=== PATIENT | male | born 2000 | race Caucasian/White ===

== ENCOUNTER 2022-08-27 20:15 | Emergency (ER) | payer OTHER, SELFPAY ==
--- OUTSIDE RECORDS SUMMARY | 2022-08-27 20:17 | XMS REPORT | Continuity of Care Document ---
:2000 Author Organization [facility] t Address [address] [place] [place] [address] Care Team Providers Name Role Phone DEWAYNE ALEJANDRE Primary Care Physician Unavailable CLARIBEL WHITAKER Attending Clinician Unavailable TIFFANIE VANN Attending Clinician Unavailable Dewayne Portillo Attending Clinician Unavailable Juve lAejo Attending Clinician Juve WAITE Attending Clinician Unavailable Physician, No Primary or Family Admitting Clinician Unavaila Juve Gray Admitting Clinician Unavailable Payers Payer Name Policy Type Policy Number Effective Date Expiration Date S bandar [employer] O [id number] 2020 00:00:00 [employer] [facility] [id number] 2015 00:00:00 Problems This patient has no known problems. Allergies, Adverse Reactions, Alerts Allergy Allergy Status Severity Reaction(s) Onset Inactive Treating Comm ents Source Name Type Date Date Clinician [facility] [employer] Active Anaphylaxis 2017-10 Univ ers [facility]GREDI 0-11 ity of 00:00: [address] [facility] [employer] Active Rash 2017-10 Univers IN INGREDI 0-11 ity of 00:00: [address] Medications This patient has no known medications. Procedures This patient has no known procedures. Encounters Start End Encounter Admission Attending Care Care Encounter Source Date/Time Date/Time Type Type Clinicians Facility Department ID 2021-06-07 2021-06-07 Outpatient Judson LACIEBABITA [facility] [id number] Univers 16:30:00 16:30:00 [facility] 2021-05-13 2021-05-13 Outpatient Judson WHITAKER [facility] [id number] Univers 11:30:00 11:30:00 [facility] 2021-05-13 2021-05-13 Outpatient Judson MEDELLINBABITA [facility] [id number] Univers 09:00:00 09:00:00 [facility] 2021-05-04 2021-05-04 [facility] [id number] Univers 10:15:00 10:15:00 [facility] 2021-04-13 2021-04-13 Outpatient Judson WHITAKER [facility] [id number] Univers 10:15:00 10:15:00 [facility] 2021-03-26 2021-03-26 Outpatient Judson VANN [facility] [id number] Univers 13:30:00 13:30:00 TIFFANIE [facility] 2020-05-28 2020-05-28 Outpatient KENA Portillo RADI [id number] [facility] 11:00:00 11:00:00 Dewayne [facility] 2020-03-30 2020-03-30 Emergency Juve Waite [facility] [id number] 17:22:42 19:52:00 Basia Gilbert [id number] [place] [id number] [place] [id number] 2020-03-30 2020-03-30 Emergency X Juve WAITE [facility] ERT [id number] Univers 17:22:42 19:52:00 [facility] Results Test Description Test Time Test Comments Results Result [facility] e Comments - CT 2020-05-28 Name: ANDREW HILARIO ORBIT/SELLA/IAC WO 14:04:00 JOSE RAFAEL TAO: 2000 Age/S: 19 / M [id number] [facility] Unit #: [id number] Loc: [place] [address] Phys: Dewayne Portillo III, MD Acct: [id number] Dis Date: Status: REG CLI PHONE #: [phone] Exam Date: 05/28/2020 3342 FAX #: Reason: DYSFUNCTION OF RIGHT OCULACHIAN TUBE EXAMS: CPT: [id number] CT ORBIT/SELLA/[place] [id number] EXAM: CT temporal bones without contrast. HISTORY: Right eustachian tube dysfunction COMPARISON: None available.Technique: Axial images of the temporal bones were obtained without contrast. Images were reformatted to create coronal and sagittal reconstructions. FINDINGS: Right temporal bone: External auditory canal is patent. Mastoid air cells and middle ear cavity are clear. There is normal appearance of the tympanic membrane as well as the scutum and tympanic annulus. Tegmen tympani is intact. Middle ear ossicles are preserved and within normal limits. Malleoincudal joint is grossly within normal limits. Oval window is grossly within normal limits.The tympanic course of the facial nerve is unremarkable. Visualized intraorbital structures including the cochlea and semicircular canals are within normal limits. There is no evidence for dehiscence. The vestibular aqueduct in caliber of the internal auditory canal are otherwise within normal limits. Opacification of the right eustachian tube is noted at the osseous portion of the connection to the tympanic cavity. Left temporal bone: External auditory canal is patent. Mastoid air cells and middle ear cavity are clear. There is normal appearance of the tympanic membrane as well as the scutum and tympanic annulus. The tegmen tympani is intact. Middle ear ossicles are preserved and within normal limits. Malleoincudal joint is grossly within normal limits. Oval window is grossly within normal limits.The tympanic course of the facial nerve is unremarkable. Visualized intraorbital structures including the cochlea and semicircular canals are within normal limits. There is no evidence for dehiscence. The vestibular aqueduct in caliber of the internal auditory canal are otherwise within normal limits. The left eustachian tube is unremarkable. The mastoid air cells are clear. IMPRESSION: Opacification of the right eustachian tube at the osseous portion connected to the tympanic cavity. PAGE 1 Signed Report (CONTINUED) Name: ANDREW HILARIO : 2000 Age/S: 19 / M [address] [place] Unit #: [id number] Loc: [place] [address] Phys: Dewayne Portillo III, MD Acct: [id number] Dis Date: Status: REG CLI PHONE #: [phone] Exam Date: 05/28/2020 1130 FAX #: Reason: DYSFUNCTION OF RIGHT OCULACHIAN TUBE EXAMS: CPT: [id number] CT ORBIT/SELLA/[place] [id number] (Continued) at 1404 Reported and signed by: Juan Parrish M.D. CC: Dewayne Portillo III, MD Technologist:Lenora Campoverde, RT(R)(CT); Lee CTDI: DLP: Trnscb Date/Time: 05/28/2020 (2504) [email or web address] Orig Print D/T: S: 05/28/2020 (5882) PAGE 2 Signed Report
[2022-08-27] MEDS ORDERED: ONDANSETRON 4 MG/2 ML VIAL ONE (21:32)
[2022-08-27] MEDS ORDERED: NA CHLORIDE 0.9% 1,000 ML ONE ×2 (21:32→23:03)
[2022-08-27] MEDS ORDERED: FAMOTIDINE 20 MG/2 ML VIAL IV ONE (21:32)
[2022-08-27 21:46] LABS: Absolute Lymphocytes (CBC) 1.3 K/uL (0.7-4.9); Hematocrit 53.7 % (39.6-49.0); Lymphocytes % 5.3 % (15.3-44.8); MCV 87.5 fL (80-100); MPV 7.9 fL (7.6-11.3); RBC Red Blood Cell Count 6.13 M/uL (4.33-5.43)
[2022-08-27 22:03] LABS: Albumin 5.1 g/dL (3.4-5.0); Bilirubin Total 0.6 mg/dL (0.2-1.0); Potassium 3.5 mmol/L (3.5-5.1); Protein, Total 9.6 g/dL (6.4-8.2)
--- NOTE | 2022-08-27 22:25 | RAD REPORT ---
EXAM DESCRIPTION: US - Abdomen Exam Limited - 08/27/2022 10:10 pm CLINICAL HISTORY: ABD PAIN COMPARISON: No comparisons FINDINGS: The gallbladder demonstrates no gallstones. No pericholecystic fluid or gallbladder wall t hickening. The common bile duct is normal measuring 4 mm. The liver demonstrates no findings of intrahepatic biliary dilatation. IMPRESSION: Unremarkable examination. Negative for cholelithiasis or acute cholecystitis.
[2022-08-27 22:34] LABS: Blood Morphology Comment NOT SEEN (NOT SEEN); Platelet Estimate ADEQ
--- NOTE | 2022-08-27 22:46 | RAD REPORT ---
EXAM DESCRIPTION: CTAbdomen Pelvis W Contrast - 08/27/2022 10:35 pm CLINICAL HISTORY: abd pain COMPARISON: No comparisons TECHNIQUE: CT of the abdomen and pelvis was performed with IV contrast. All CT scans are performed using dose optimization technique as appropriate and may include automated exposure control or mA/KV adjustment according to patient size. FINDINGS: Lower chest: No acute abnormality. Liver: No acute abnormality or suspicious lesions. Biliary: No biliary ductal dilatation. Stomach: No significant focal abnormality. Duodenum: No significant focal abnormality. Pancreas: No significant abnormality. Spleen: No significant abnormality. Adrenal: No suspicious lesions. Kidney/ureter: No hydronephrosis. No renal calculi. Retroperitoneum: No retroperitoneal adenopathy. Vascular: No aneurysm. Bowel: Diffusely distended colon with fluid and multiple small air-fluid levels.. Normal appendix. Peritoneum: No ascites or free air. Bladder: Grossly unremarkable. Reproductive: No adnexal masses. Bones: No acute fracture. Other: n/a IMPRESSION: Distended colon with fluid and small air-fluid levels likely representing diarrheal dise ase. No bowel obstruction. Normal appendix. .
[2022-08-27] MEDS ORDERED: metroNIDAZOLE 500 MG TABLET ONE (23:03)
[2022-08-27] MEDS ORDERED: CIPROFLOXACIN HCL 500 MG TAB ONE (23:03)
--- NOTE | 2022-08-27 23:44 | EDPHYS ---
Physician Documentation [facility] Name: Thaddeus Carvalho Age: 21 yrs Sex: Male : 2000 Arrival Date: 08/27/2022 Time: 20:17 Bed 7 Private MD: ED Physician Juan Mendez HPI: 08/27 22:59 This 21 yrs old Male presents to ER via Ambulatory with complaints of Vomiting/Diarrhea.kb 22:59 The patient presents to the emergency department with nausea, vomiting, diarrhea, kb abdominal pain. Onset: The symptoms/episode began/occurred today. Possible causes: unknown. The symptoms are aggravated by nothing. The symptoms are alleviated by nothing. Associated signs and symptoms: Pertinent positives: abdominal pain, diarrhea, nausea, vomiting. Severity of symptoms: At their worst the symptoms were moderate in the emergency department the symptoms are unchanged. The patient has not experienced similar symptoms in the past. The patient has not recently seen a physician. Historical: - Allergies: 20:50 PENICILLINS; hb 20:50 Aspirin; hb - Immunization history:: Client reports having NOT received the Covid vaccine. - Social history:: Smoking status: Patient denies any tobacco usage or history of. ROS: 22:58 Constitutional: Negative for fever, chills, and weight loss. kb 22:58 Abdomen/GI: Positive for abdominal pain, nausea, vomiting, and diarrhea. 22:58 All other systems are negative. Exam: 22:58 Constitutional: This is a well developed, well nourished patient who is awake, alert, kb and in no acute distress. Head/Face: Normocephalic, atraumatic. ENT: Moist Mucous membranes Cardiovascular: Regular rate and rhythm with a normal S1 and S2. No gallops, murmurs, or rubs. No pulse deficits. Respiratory: Respirations even and unlabored. No increased work of breathing. Talking in full sentences Skin: Warm, dry with normal turgor. Normal color. MS/ Extremity: Pulses equal, no cyanosis. Neurovascular intact. Full, normal range of motion. Neuro: Awake and alert, GCS 15, oriented to person, place, time, and situation. Moves all extremities. Normal gait. Psych: Awake, alert, with orientation to person, place and time. Behavior, mood, and affect are within normal limits. 22:58 Abdomen/GI: Inspection: abdomen appears normal, Bowel sounds: normal, Palpation: soft, in all quadrants, mild abdominal tenderness, in all quadrants. Vital Signs: 20:49 BP 137 / 88; Pulse 124; Resp 18; Temp 97.2; Pulse Ox 100% on R/A; Weight 90.72 kg; hb Height 5 ft. 8 in. (172.72 cm); Pain 5/10; 21:11 BP 140 / 106; Pulse 110; Resp 17 S; Temp 98(O); Pulse Ox 100% on R/A; Pain 6/10; aa9 21:55 BP 132 / 96; Pulse 96; Resp 17 S; Pulse Ox 100% on R/A; as6 20:49 Body Mass Index 30.41 (90.72 kg, 172.72 cm) hb MDM: 21:00 Patient medically screened. kb 22:58 Data reviewed: vital signs, nurses notes. Data interpreted: Pulse oximetry: on room air kb is 100 %. Interpretation: normal. Counseling: I had a detailed discussion with the patient and/or guardian regarding: the historical points, exam findings, and any diagnostic results supporting the discharge/admit diagnosis, lab results, radiology results, the need for outpatient follow up, a family practitioner, to return to the emergency department if symptoms worsen or persist or if there are any questions or concerns that arise at home. 08/27 21:17 Order name: CBC with Diff; Complete Time: 22:39 kb 08/27 21:17 Order name: CMP; Complete Time: 22:19 kb 08/27 21:17 Order name: Lipase; Complete Time: 22:19 kb 08/27 21:17 Order name: US Abdomen Limited; Complete Time: 22:39 kb 08/27 21:51 Order name: Manual Differential; Complete Time: 22:39 EDMS 08/27 22:19 Order name: CT Abd/Pelvis - IV Contrast Only; Complete Time: 22:47 kb 08/27 21:17 Order name: IV Saline Lock; Complete Time: 21:42 kb 08/27 21:17 Order name: Labs collected and sent; Complete Time: 21:42 kb Administered Medications: 21:54 Drug: NS 0.9% 1000 ml Route: IV; Rate: 1 bolus; Site: right forearm; as6 08/28 00:00 Follow up: Response: No adverse reaction; IV Status: Completed infusion; IV Intake: as6 1000ml 08/27 21:54 Drug: Pepcid (famotidine) 20 mg Route: IVP; Site: right forearm; as6 23:01 Follow up: Response: No adverse reaction aa9 21:54 Drug: Zofran (Ondansetron) 4 mg Route: IVP; Site: right forearm; as6 23:01 Follow up: Response: No adverse reaction aa9 23:08 Drug: Cipro (ciprofloxacin) 500 mg Route: PO; aa9 23:59 Follow up: Response: No adverse reaction as6 23:08 Drug: Flagyl (metroNIDAZOLE) 500 mg Route: PO; aa9 08/28 00:00 Follow up: Response: No adverse reaction as08/27 23:08 Drug: NS 0.9% 1000 ml Route: IV; Rate: 1000 ml; Site: right wrist; aa9 08/28 00:00 Follow up: Response: No adverse reaction; IV Status: Completed infusion; IV Intake: as6 1000ml Disposition: 06:03 Co-signature as Attending Physician, Juan Mendez MD I agree with the assessment and kdr plan of care. Disposition Summary: 08/27/22 23:43 Discharge Ordered Location: Home kb Condition: Stable kb Diagnosis - Nausea with vomiting, unspecified kb - Diarrhea, unspecified kb - Elevated white blood cell count kb Followup: kb - With: Private Physician - When: 2 - 3 days - Reason: Recheck today's complaints, Continuance of care, Re-evaluation by your physician Followup: kb - With: Emergency Department - When: As needed - Reason: Worsening of condition Discharge Instructions: - Discharge Summary Sheet kb - Food Choices to Help Relieve Diarrhea, Adult kb - Viral Gastroenteritis, Adult, [id number] kb - Colitis kb Forms: - Medication Reconciliation Form kb - Thank You Letter kb - Antibiotic Education kb - Prescription Opioid Use kb Prescriptions: - Flagyl 500 mg Oral Tablet - take 1 tablet by ORAL route every 8 hours for 10 days; 30 tablet; Refills: 0, kb Product Selection Permitted - Zofran 4 mg Oral Tablet - take 1 tablet by ORAL route every 6 hours As needed; 20 tablet; Refills: 0, kb Product Selection Permitted - Cipro 500 mg Oral Tablet - take 1 tablet by ORAL route every 12 hours for 10 days; 20 tablet; Refills: 0, kb Product Selection Permitted Signatures: Dispatcher [employer] Liane Mcwilliams, LAUNDRY OPERATOR FINISHING-C LAUNDRY OPERATOR FINISHING-Juan Sevilla MD MD kdr Baxter, Heather RN RN Eric Slade RN RN as6 Barbie Castañeda RN RN aa9 Corrections: (The following items were deleted from the chart) 08/27 20:51 20:50 Allergies: No Known Allergies; hb
--- NOTE | 2022-08-27 23:44 | ER ---
Nurse's Notes [facility] Name: Thaddeus Carvalho Age: 21 yrs Sex: Male : 2000 Arrival Date: 08/27/2022 Time: 20:17 Bed 7 Private MD: Diagnosis: Nausea with vomiting, unspecified;Diarrhea, unspecified;Elevated white blood cell count Presentation: 08/27 20:49 Chief complaint: N/V/D and RUQ pain since this morning, not tolerating fluids. Actively hb vomiting in triage. Coronavirus screen: Client presents with at least one sign or symptom that may indicate coronavirus-19. Standard/surgical mask placed on the client. Provider contacted for isolation considerations. Ebola Screen: No symptoms or risks identified at this time. Risk Assessment: Do you want to hurt yourself or someone else? Patient reports no desire to harm self or others. Onset of symptoms was August 27, 2022. 20:49 Method Of Arrival: Ambulatory hb 20:49 Acuity: EMELIA 3 hb 21:42 Initial Sepsis Screen: Does the patient meet any 2 criteria? No. Patient's initial as6 sepsis screen is negative. Does the patient have a suspected source of infection? No. Patient's initial sepsis screen is negative. Historical: - Allergies: 20:50 PENICILLINS; hb 20:50 Aspirin; hb - Immunization history:: Client reports having NOT received the Covid vaccine. - Social history:: Smoking status: Patient denies any tobacco usage or history of. Screenin:10 Abuse screen: Denies threats or abuse. Denies injuries from another. Nutritional aa9 screening: No deficits noted. Tuberculosis screening: No symptoms or risk factors identified. Fall Risk None identified. Assessment: 21:09 General: Appears uncomfortable, ill, Behavior is cooperative, appropriate for age, aa9 anxious. Pain: Complains of pain in right upper quadrant and right lower quadrant Pain currently is 6 out of 10 on a pain scale. Noted to be grimacing, Also complains of nausea. Neuro: Level of Consciousness is awake, alert, obeys commands, Oriented to person, place, time, situation. Cardiovascular: No deficits noted. Respiratory: Airway is patent Respiratory effort is even, unlabored. GI: Abdomen is round Abd is soft X 4 quads Abdomen is tender to palpation in right upper quadrant and right lower quadrant Guarding noted Reports diarrhea, nausea, vomiting, since 4 hour ago. : No signs and/or symptoms were reported regarding the genitourinary system. EENT: No signs and/or symptoms were reported regarding the EENT system. Derm: Skin is intact, is healthy with good turgor. 21:55 General: Appears uncomfortable, Behavior is calm. as6 Vital Signs: 20:49 BP 137 / 88; Pulse 124; Resp 18; Temp 97.2; Pulse Ox 100% on R/A; Weight 90.72 kg; hb Height 5 ft. 8 in. (172.72 cm); Pain 5/10; 21:11 BP 140 / 106; Pulse 110; Resp 17 S; Temp 98(O); Pulse Ox 100% on R/A; Pain 6/10; aa9 21:55 BP 132 / 96; Pulse 96; Resp 17 S; Pulse Ox 100% on R/A; as6 20:49 Body Mass Index 30.41 (90.72 kg, 172.72 cm) hb ED Course: 20:17 Patient arrived in ED. as 20:19 Liane Dunne FNP-C is PHCP. kb 20:19 Juan Mendez MD is Attending Physician. kb 20:50 Triage completed. hb 20:51 Arm band placed on. hb 20:54 Eric Angeles, MARY JANE is Primary Nurse. as6 21:42 Placed in gown. Bed in low position. Call light in reach. Side rails up X 1. as6 21:42 Inserted saline lock: 22 gauge in right forearm, using aseptic technique. Blood as6 collected. 22:12 US Abdomen Limited In Process Unspecified. EDMS 22:37 CT Abd/Pelvis - IV Contrast Only In Process Unspecified. EDMS 23:59 No provider procedures requiring assistance completed. IV discontinued, intact, as6 bleeding controlled, No redness/swelling at site. Pressure dressing applied. Administered Medications: 21:54 Drug: NS 0.9% 1000 ml Route: IV; Rate: 1 bolus; Site: right forearm; as6 08/28 00:00 Follow up: Response: No adverse reaction; IV Status: Completed infusion; IV Intake: as6 1000ml 08/27 21:54 Drug: Pepcid (famotidine) 20 mg Route: IVP; Site: right forearm; as6 23:01 Follow up: Response: No adverse reaction aa9 21:54 Drug: Zofran (Ondansetron) 4 mg Route: IVP; Site: right forearm; as6 23:01 Follow up: Response: No adverse reaction aa9 23:08 Drug: Cipro (ciprofloxacin) 500 mg Route: PO; aa9 23:59 Follow up: Response: No adverse reaction as6 23:08 Drug: Flagyl (metroNIDAZOLE) 500 mg Route: PO; aa9 08/28 00:00 Follow up: Response: No adverse reaction as6 08/27 23:08 Drug: NS 0.9% 1000 ml Route: IV; Rate: 1000 ml; Site: right wrist; aa9 08/28 00:00 Follow up: Response: No adverse reaction; IV Status: Completed infusion; IV Intake: as6 1000ml Medication: 08/27 21:42 VIS not applicable for this client. as6 Intake: 08/28 00:00 IV: 1000ml; Total: 1000ml. as6 00:00 IV: 1000ml; Total: 2000ml. as6 Outcome: 08/27 23:43 Discharge ordered by . kb 23:59 Discharged to home ambulatory. as6 23:59 Condition: stable 23:59 Discharge instructions given to patient, Instructed on discharge instructions, follow up and referral plans. medication usage, Demonstrated understanding of instructions, follow-up care, medications, Prescriptions given X 3. 08/28 00:02 Patient left the ED. as6 Signatures: Dispatcher [employer] EDNJ Liane Dunne, PATTIE MCCARTHY-Liliana Haley as Kallie Mckeon RN RN Eric Angeles RN RN as6 Barbie Castañeda RN RN aa9 Corrections: (The following items were deleted from the chart) 08/27 20:51 20:50 Allergies: No Known Allergies; hb hb
[2022-08-28 01:29] VITALS: O2SAT 100
[2022-08-28 01:39] VITALS: TEMP 98
[2022-08-28 01:41] VITALS: BP 132/96
== END 2022-08-28 00:02 | disposition home or self-care (01) ==
LOC: ER 20:15
DX: R11.2 Nausea with vomiting, unspecified (principal); R19.7 Diarrhea, unspecified; D72.829 Elevated white blood cell count, unspecified; Z88.0 Allergy status to penicillin; Z88.6 Allergy status to analgesic agent
CPT/HCPCS: 36415; 74177; 76705; 80053; 83690; 85025; 96361; 96374; 96375; 99284; J2405; J7030; Q9967